=== PATIENT | male | born 1975 | race Caucasian/White ===

== ENCOUNTER 2020-07-23 06:24 | Emergency (ER) | payer OTHER, SELFPAY ==
--- NOTE | ~2020-07-23 | CT_ITS ---
EXAMINATION: CT abdomen pelvis wo con EXAM DATE: 07/23/2020 08:46 INDICATION: right flank pain TECHNIQUE: Spiral CT of the abdomen and pelvis was performed without contrast. Axial, coronal and sag ittal images were reviewed. The dose-length product (DLP) for this examination was 1573.57 mGy-cm. The exposure was tailored according to patient size (auto mA exposure control), and iterative reconst ruction (ASIR) was used as additional dose reduction technique. There is no prior study for comparis on. FINDINGS: A few punctate bilateral calyceal stones. No ureteral stones or hydronephrosis. The prost ate is unremarkable. There is a 5 mm fat density region along the left aspect of the bladder wall, a benign finding such as lipoma. The liver, spleen, adrenal glands and pancreas are unremarkable. Ga llbladder is unremarkable. No biliary obstruction. There is no retroperitoneal or pelvic lymphadeno romana. The appendix is normal. The stomach and small bowel are unremarkable. There is expected amount of c olonic stool. No free intraperitoneal gas. The heart is normal in size. There are no pericardial or pleural effusions. The lung bases are unremarkable. Mild lumbar levoscoliosis. IMPRESSION: 1. Punctate bilateral nephrolithiasis. 2. No acute findings. Reviewed, dictated and finalized at location A. WINDING MACHINE TENDER
--- NOTE | ~2020-07-23 | XR_ITS ---
EXAMINATION: XR abdomen/kub 1V EXAM DATE: 07/23/2020 08:04 INDICATION: right flank pain Since , Hx Stones On Rt Side . TECHNIQUE: Frontal projection(s) of the abdomen for interpretation. CT scan has been ordered for totrista y but it is not available for correlation at this time. FINDINGS: There are 2 calcifications in the right side of the pelvis which are suspected most likely phleboliths. No calcifications overlying the renal contours. Nonobstructive bowel gas pattern. Mild bony degenerative changes. IMPRESSION: Unremarkable XR abdomen/kub 1V exam. Reviewed, dictated and finalized at location A. AND GAMES HAND FINISHER
[2020-07-23 06:29] VITALS: BP 144/99; PULSE 104; RESP 16; TEMP 36.8; O2SAT 100
[2020-07-23 07:28] LABS: Basophils Absolute Auto 0.1 K/mm3 (0.0-0.1); Basophils Percent Auto 1.4 % (0.2-1.2); Eosinophils Absolute Auto 0.2 K/mm3 (0-0.3); Eosinophils Percent Auto 3.3 % (0-4.4); Hematocrit 50.3 % (42.0-52.0); Hemoglobin 17.4 g/dL (14.0-18.0); Immature Granulocyte Absolute 0.02 K/mm3 (0.00-0.031); Immature Granulocyte Percent A 0.3 % (0-0.5); Lymphocytes Absolute Auto 2.03 K/mm3 (0.9-3.2); Lymphocytes Percent Auto 32.3 % (18.3-44.2); Mean Corpuscular HGB Conc 34.6 g/dl (32-36); Mean Corpuscular Hemoglobin 29.1 pg (26-34); Mean Corpuscular Volume 84.1 fl (80-100); Mean Platelet Volume 9.6 fl (7.4-10.4); Monocytes Absolute Auto 0.5 K/mm3 (0.1-0.6); Monocytes Percent Auto 8.1 % (2.6-8.5); Neutrophils Absolute Auto 3.4 K/mm3 (1.3-6.7); Neutrophils Percent Auto 54.6 % (45.5-73.1); Platelet Count Result 301 k/mm3 (150-375); Red Blood Count 5.98 M/mm3 (4.6-6.20); White Blood Count 6.3 K/mm3 (4.5-10.0)
[2020-07-23 07:38] LABS: Alanine Aminotransferase 79 U/L (4-50); Albumin Level 4.1 g/dL (3.5-5.1); Alkaline Phosphatase 102 U/L (38-126); Anion Gap 10 mmol/L (8-16); Aspartate Amino Transferase 50 U/L (17-59); Bilirubin,Total 0.6 mg/dL (0.2-1.3); Blood Urea Nitrogen 11 mg/dL (9-20); Calcium 9.3 mg/dL (8.4-10.2); Carbon Dioxide 28 mmol/L (22-30); Chloride 104 mmol/L (98-107); Estimated Glomerular Filt Rate > 60; Glucose 98 mg/dL (75-110); Lipase 89 U/L (23-300); Potassium 4.3 mmol/L (3.4-5.0); Sodium 142 mmol/L (137-145)
[2020-07-23 07:41] LABS: Add Urine Microscopic? NO; Appearance Urine Clear (Clear); Bilirubin Urine Negative (Negative); Blood Urine Negative (Negative); Color Urine Yellow (Yellow); Glucose Urine UA Negative (Negative); Ketones Urine Negative (Negative); Leukocyte Esterase Ur Negative LEU/UL (Negative); Mucus Urine Few /lpf; Nitrate Urine Negative (Negative); Protein Urine Negative (Negative); RBC Urine 0-2 /hpf (0-2); Specific Grav Ur 1.024 (1.001-1.035); Urobilinogen Urine Negative mg/dL (<2.0); WBC Urine 0-3 /hpf
--- NOTE | 2020-07-23 07:53 | ED.NAVMDI ---
HPI - Nausea/Vomiting/Diarrhea General Chief complaint: Nausea/Vomiting/Diarrhea Stated complaint: abd pain, nausea, flank pain, diarrhea Time Seen by Provider: 07/23/20 06:29 Source: patient Mode of arrival: ambulatory Limitations: no limitations History of Present Illness HPI Narrative: This patient is a 45 year old male who presents for evaluation of abdominal pain with nausea and diarrhea. He states starting 1 week ago he developed diarrhea. He has continued to have multiple episodes of nonbloody loose stools daily. He reports a temperature 99.7F with nausea and vomiting on Saturday. His temperature has been normal since. He is concerned because he is now experiencing epigastric abdominal pain and right flank pain and right lower abdominal pain. He states this pain feels similar to previous episode of a kidney stone years ago. He has not taken anything for pain. Pain is rated 5/10. Related Data Allergies Allergy/AdvReac Type Severity Reaction Status Date / Time No Known Allergies Allergy Verified 07/23/20 07:27 Review of Systems Review of Systems: All systems reviewed & are unremarkable except as noted in HPI and below Constitutional: Constitutional: Denies chills and Reports fever(s) Cardiovascular: Cardiovascular: Denies chest pain Respiratory: Respiratory: Denies cough and Denies dyspnea Gastrointestinal: Gastrointestinal: Reports abdominal pain, Reports diarrhea, Reports nausea and Reports vomiting Genitourinary: Genitourinary: Denies hematuria, Denies oliguria and Denies urinary frequency Musculoskeletal: Musculoskeletal: Reports back pain [facility] Past Medical History Medical History (Updated 07/23/20 @ 09:52 by Elizabeth Johnson MD) Bladder mass Kidney stone Social History Social History (Updated 07/23/20 @ 07:57 by Elizabeth Johnson MD) Tobacco type: e-cigarettes/vaping Alcohol use details: rarely Substance use: never Exam Const: General: no acute distress and alert Orientation/consciousness: patient oriented x3 HENMT: Head: atraumatic Face and sinus: face symmetric Eyes: EOM: EOMs intact bilaterally Chest: Chest palpation & inspection: normal inspection of the chest, abnormal inspection of the chest, tenderness and Pacemaker present Resp: Effort & Inspection: normal respiratory effort, no retractions and no use of accessory muscles Auscultation: clear to auscultation bilaterally Cardio: Rate: regular rate Rhythm: regular rhythm Heart sounds: no murmurs GI: GI Palp: Yes Soft to palpation, Yes Tenderness to palpation present (GI) (RLQ, RUQ), No Guarding due to palpation present (GI) and No Rigid due to palpation Auscultation: normal bowel sounds : General: Yes CVA tenderness on the right Course Reevaluation(s) Reevaluation #1: I discussed with patient labs are unremarkable and CT shows punctate kidney stones. HE denies any additional questions or complaints. Date: 07/23/20 Time: 09:51 Vital Signs Vital signs: Vital Signs Temperature 98.2 F 07/23/20 06:29 Pulse Rate 104 H 07/23/20 06:29 Respiratory Rate 16 07/23/20 06:29 Blood Pressure 144/99 H 07/23/20 06:29 Pulse Oximetry 100 07/23/20 06:29 Temperature 98.2 F 07/23/20 06:29 Pulse Rate 77 07/23/20 09:21 Respiratory Rate 17 07/23/20 09:21 Blood Pressure 139/99 H 07/23/20 09:21 Pulse Oximetry 99 07/23/20 09:21 MDM - Nausea/Vomiting/Diarrhea Lab Data Attestation: I reviewed the patient's lab results. Result diagrams: 07/23/20 07:21 07/23/20 07:21 Labs: Lab Results 07/23/20 07/23/20 07/23/20 Range/Units 07:21 07:21 07:29 WBC 6.3 (4.5-10.0) K/mm3 RBC 5.98 (4.6-6.20) M/mm3 Hgb 17.4 (14.0-18.0) g/dL Hct 50.3 (42.0-52.0) % MCV 84.1 (80-100) fl MCH 29.1 (26-34) pg MCHC 34.6 (32-36) g/dl RDW 13.0 (11.5-14.5) % Plt Count 301 (150-375) k/mm3 MPV 9.6 (7.4-10.4) fl Immature Gran % (Auto) 0
[2020-07-23] MEDS: PANTOPRAZOLE SODIUM IV 40 MG VIAL IV PUSH (08:18)
[2020-07-23] MEDS: SODIUM CHLORIDE 0.9% IV 1,000 ML 999 ML IV CONT (08:18)
[2020-07-23] MEDS: ONDANSETRON INJ 4 MG/2 ML VIAL IV PUSH (08:18)
[2020-07-23 08:21] VITALS: BP 140/97; PULSE 83; RESP 20; O2SAT 98
[2020-07-23 09:21] VITALS: BP 139/99; PULSE 77; RESP 17; O2SAT 99
== END 2020-07-23 10:01 | disposition home or self-care (01) ==
PROVIDERS: Emergency Medicine; Emergency Provider General Practice
DX: R19.7 Diarrhea, unspecified (principal); E86.0 Dehydration; R10.9 Unspecified abdominal pain; F17.290 Nicotine dependence, other tobacco product, uncomplicated; Z87.442 Personal history of urinary calculi; N20.0 Calculus of kidney
CPT/HCPCS: 36415; 74018; 74176; 80053; 81003; 83690; 85025; 96361; 96365; 96375; 99284; C9113; J0131; J2405; J7030

== ENCOUNTER 2020-09-15 09:15 | Outpatient (CLI) | payer OTHER, SELFPAY ==
--- NOTE | ~2020-09-15 | US_ITS ---
EXAMINATION: US right upper quadrant EXAM DATE: 09/15/2020 09:55 INDICATION: elevated liver enzymes . TECHNIQUE: Multiple grayscale and Doppler images of the abdomen right upper quadrant were obtained (b y a technologist who performed the scan) and subsequently reviewed. There is no prior study for lisa ahmadi. FINDINGS: The pancreatic head and body are normal in appearance. The pancreatic tail is not visualized. Mildl y echogenic liver parenchyma, hepatic steatosis. There are no focal liver lesions identified. Ther e is no evidence of intrahepatic biliary duct dilation. Portal venous flow was seen in the hepatoped al, normal direction and has normal Doppler waveform. No right-sided hydronephrosis. Common bile duct measures 3 mm, which is normal. The gallbladder wall is normal in thickness, with ex pected amount of distention. No sonographic evidence of pericholecystic fluid. There is no cholelit hiases. Technologist performing exam reports patient did not demonstrate sonographic Hobson's sign. Please note that this sign is less reliable in patients who have received pain medication. IMPRESSION: Hepatic steatosis. Reviewed, dictated and finalized at location B. CARE TRANSITION IMPRESSION: Hepatic steatosis.
== END 2020-09-15 09:16 | disposition home or self-care (01) ==
PROVIDERS: PCP Emergency Medicine; Visit Provider Emergency Medicine
DX: R74.8 Abnormal levels of other serum enzymes (principal); K76.0 Fatty (change of) liver, not elsewhere classified
CPT/HCPCS: 76705

== ENCOUNTER 2022-08-26 10:27 | Emergency (ER) | payer BC, MEDICAID, SELFPAY ==
--- NOTE | ~2022-08-26 | CT_ITS ---
EXAMINATION: CT abdomen pelvis wo con DATE: 08/26/2022 13:11 INDICATION: Left flank pain radiating to the left lower quadrant TECHNIQUE: Computed tomography (CT) of the abdomen and pelvis was performed without intravenous contr ast. Automated exposure control and iterative reconstruction technique were employed. The dose-length product was 1690.35 mGy-cm. COMPARISON: 07/23/2020 FINDINGS: Tiny calcified nodules at the bilateral lung bases consistent with old granulomatous disease. Heart s ize normal. No pericardial or pleural effusion. A few scattered hepatic steatosis. Gallbladder, splee n, pancreas and bilateral adrenal glands are normal. Bilateral nephrolithiasis with 2 stones in the m id to lower right kidney and 2 stones in the mid to lower left kidney, all measuring <2 mm. There is a slightly larger 2 mm at least partially obstructing stone in the mid left ureter at the level of th e transverse processes of L4 which results in mild left hydronephrosis and mild perinephric stranding . Bladder is normal. No significant change in a 8 mm ovoid macroscopic fat attenuation nodule along t he mucosal side of the wall at the left base of the bladder testing a small lipoma. Bowels including the appendix are normal. Tiny fat-containing umbilical hernia. No free intraperitoneal gas or fluid. No pathologically enlarged abdominal or pelvic lymphadenopathy. Mild S-shaped curvature of the lumbar and lower thoracic spine with mild spondylosis. 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 IMPRESSION: 1. Bilateral nephrolithiasis with at least partially obstructing 2 mm mid left ureteral stone with mi ld left hydronephrosis and perinephric stranding. Correlate with urinalysis to exclude associated uri nary tract infection. 2. Diffuse hepatic steatosis. Reviewed, dictated and finalized at location A. IRER PUMP IMPRESSION: 1. Bilateral nephrolithiasis with at least partially obstructing 2 mm mid left ureteral stone with mild left hydronephrosis and perinephric stranding. Correla te with urinalysis to exclude associated urinary tract infection. 2. Diffuse hepatic steatosis.
[2022-08-26 11:01] VITALS: BP 153/100; PULSE 100; RESP 16; TEMP 36.7; O2SAT 99
[2022-08-26 12:04] LABS: Add Urine Microscopic? YES; Appearance Urine Clear (Clear); Bilirubin Urine Negative (Negative); Blood Urine 2+ (Negative); Color Urine Light Yellow (Yellow); Glucose Urine UA Negative (Negative); Ketones Urine Negative (Negative); Leukocyte Esterase Ur Negative LEU/UL (Negative); Nitrate Urine Negative (Negative); Protein Urine Negative (Negative); Specific Grav Ur 1.025 (1.001-1.035); Urobilinogen Urine 0.2 mg/dL (<2.0); pH Urine 5.5 (5.0-9.0)
[2022-08-26 12:04] LABS: Basophils Absolute Auto 0.1 K/mm3 (0.0-0.1); Basophils Percent Auto 0.9 % (0.2-1.2); Eosinophils Absolute Auto 0.2 K/mm3 (0-0.3); Eosinophils Percent Auto 1.8 % (0-4.4); Hematocrit 48.6 % (42.0-52.0); Hemoglobin 16.3 g/dL (14.0-18.0); Immature Granulocyte Absolute 0.04 K/mm3 (0.00-0.031); Immature Granulocyte Percent A 0.5 % (0-0.5); Lymphocytes Absolute Auto 1.67 K/mm3 (0.9-3.2); Lymphocytes Percent Auto 19.3 % (18.3-44.2); Mean Corpuscular HGB Conc 33.5 g/dl (32-36); Mean Corpuscular Hemoglobin 29.2 pg (26-34); Mean Corpuscular Volume 87.1 fl (80-100); Mean Platelet Volume 9.7 fl (7.4-10.4); Monocytes Absolute Auto 0.7 K/mm3 (0.1-0.6); Monocytes Percent Auto 7.6 % (2.6-8.5); Neutrophils Absolute Auto 6.1 K/mm3 (1.3-6.7); Neutrophils Percent Auto 69.9 % (45.5-73.1); Platelet Count Result 308 k/mm3 (150-375); Red Blood Count 5.58 M/mm3 (4.6-6.20); Red Cell Distribution Width 13.3 % (11.5-14.5); White Blood Count 8.7 K/mm3 (4.5-10.0)
[2022-08-26 12:11] LABS: Bacteria Urine Trace /hpf; Mucus Urine Rare /lpf; RBC Urine 21-50 /hpf (0-2); Squamous Epithelial Cell Urine Rare /hpf (Few); WBC Urine 0-3 /hpf
[2022-08-26 12:20] LABS: Alanine Aminotransferase 89 U/L (6-50); Albumin Level 4.2 g/dL (3.5-5.1); Alkaline Phosphatase 122 U/L (38-126); Anion Gap 7 mmol/L (8-16); Aspartate Amino Transferase 63 U/L (17-59); Bilirubin,Total 0.8 mg/dL (0.2-1.3); Blood Urea Nitrogen 14 mg/dL (9-20); Calcium 8.8 mg/dL (8.4-10.2); Carbon Dioxide 25 mmol/L (22-30); Chloride 105 mmol/L (98-107); Estimated CRCL calculation 87 ml/min; Estimated Glomerular Filt Rate > 60; Glucose 161 mg/dL (65-110); Potassium 4.2 mmol/L (3.4-5.0); Sodium 137 mmol/L (137-145)
--- NOTE | 2022-08-26 12:27 | ED.GENADULT ---
HPI - General Adult General Chief complaint: Urogenital-Male Stated complaint: left flank pain Time Seen by Provider: 08/26/22 11:57 History of Present Illness HPI narrative: Patient is a 47-year-old male presenting with left flank pain for 2 days. Patient states that starting Saturday night he developed left flank pain that radiates into his left lower quadrant. States that he has had multiple episodes of hematuria since that time. States that he has been intermittently nauseated but has not been vomiting. States that he had a kidney stone back in 2009 and this feels similarly. He denies fevers or chills, chest pain, shortness of breath, cough, dysuria. He does report several episodes of diarrhea. Related Data Allergies Allergy/AdvReac Type Severity Reaction Status Date / Time No Known Allergies Allergy Verified 08/26/22 11:41 Review of Systems Review of Systems: All systems reviewed & are unremarkable except as noted in HPI and below PMFSH Past Medical History Medical History Bladder mass Kidney stone Social History Social History Tobacco type: e-cigarettes/vaping Alcohol use details: rarely Substance use: never Exam Narrative: GENERAL: Well-appearing, well-nourished, and in no acute distress. HEAD: Normocephalic, atraumatic. EYES: PERRLA and EOMI. ENT: Nares clear, no rhinorrhea or epistaxis. Mucous membranes moist. NECK: Supple. CHEST: Clear to auscultation. No respiratory distress. HEART: Regular rate and rhythm. No murmur heard. Normal peripheral pulses. ABDOMEN: Soft, tender in left lower quadrant with associated CVA tenderness, no guarding or rebound, nondistended, normal active bowel sounds. EXTREMITIES: Normal range of motion. No edema. SKIN: Warm, dry, no rash. NEURO: No focal deficits. Alert and oriented x3. PSYCH: Normal mood and affect. Course Vital Signs Vital signs: Vital Signs Temperature 98.1 F 08/26/22 11:01 Pulse Rate 100 08/26/22 11:01 Respiratory Rate 16 08/26/22 11:01 Blood Pressure 153/100 H 08/26/22 11:01 Pulse Oximetry 99 08/26/22 11:01 Oxygen Delivery Room Air 08/26/22 11:01 Temperature 98.1 F 08/26/22 11:01 Pulse Rate 86 08/26/22 15:16 Respiratory Rate 16 08/26/22 15:16 Blood Pressure 142/86 H 08/26/22 15:16 Pulse Oximetry 98 08/26/22 15:16 Oxygen Delivery Room Air 08/26/22 11:01 Medical Decision Making MDM Narrative Medical decision making narrative: Patient is a 47-year-old male presenting with left flank pain and hematuria. Patient is hypertensive, though his vitals are within normal limits. Blood work is unremarkable. Renal function is normal. No leukocytosis. UA with RBCs but no evidence of infection. CT abdomen pelvis reveals bilateral nephrolithiasis with 2 mm ureteral stone in the mid left ureter with partial obstruction. There is mild hydro and perinephric stranding. Again no evidence of infection on UA. Patient's pain and nausea is well controlled. I spoke with Dr. Cornelius who recommends Flomax, ibuprofen, [facility] for severe breakthrough pain. Recommends the patient call his clinic this week to schedule follow-up. Patient feels comfortable with this plan. Appropriate return precautions given. Discharged in stable condition. Vital Signs Vital Signs: Vital Signs Temperature 98.1 F 08/26/22 11:01 Pulse Rate 100 08/26/22 11:01 Respiratory Rate 16 08/26/22 11:01 Blood Pressure 153/100 H 08/26/22 11:01 Pulse Oximetry 99 08/26/22 11:01 Oxygen Delivery Room Air 08/26/22 11:01 Temperature 98.1 F 08/26/22 11:01 Pulse Rate 86 08/26/22 15:16 Respiratory Rate 16 08/26/22 15:16 Blood Pressure 142/86 H 08/26/22 15:16 Pulse Oximetry 98 08/26/22 15:16 Oxygen Delivery Room Air 08/26/22 11:01 Lab Data 08/26/22 11:50 08/26/22 11:50 Labs:
[2022-08-26] MEDS: SODIUM CHLORIDE 0.9% IV 1,000 ML 999 ML IV CONT (12:36)
[2022-08-26] MEDS: KETOROLAC 15 MG/ML VIAL (*BKC) IV PUSH (15:10)
[2022-08-26 15:16] VITALS: BP 142/86; PULSE 86; RESP 16; O2SAT 98
== END 2022-08-26 15:20 | disposition home or self-care (01) ==
PROVIDERS: Emergency Provider Emergency Medicine; PCP Emergency Medicine
DX: N13.2 Hydronephrosis with renal and ureteral calculous obstruction (principal)
CPT/HCPCS: 36415; 74176; 80053; 81001; 85025; 96365; 96375; 99284; J0131; J1885; J7030

== ENCOUNTER 2023-05-01 18:33 | Emergency (ER) | payer BC, MEDICAID, SELFPAY ==
[2023-05-01] VITALS (8 sets, daily range): BP systolic 125–151; BP diastolic 74–98; PULSE 97–123; RESP 14–22; TEMP 36.6; O2SAT 96–100
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
[2023-05-01] MEDS: SILVER SULFADIAZINE 1% CR 50 GM JAR (*BKC) 1 APPLIC TOPICAL (18:58)
[2023-05-01] MEDS: HYDROmorphone HCL INJ (*CRX) 1 MG/ML SYR IV PUSH (18:58)
[2023-05-01] MEDS: ONDANSETRON INJ 4 MG/2 ML VIAL IV PUSH (18:58)
[2023-05-01] MEDS: TETANUS,DIPHTHERIA,AC PERTUSSIS ADULT (0.5 ML) BOOSTRIX IM (18:58)
[2023-05-01] MEDS: SODIUM CHLORIDE 0.9% IV 1,000 ML 999 ML IV CONT (18:59)
== END 2023-05-01 20:46 | disposition home or self-care (01) ==
PROVIDERS: Emergency Provider Physician Assistant; PCP Emergency Medicine
DX: T20.25XA Burn of second degree of scalp [any part], initial encounter (principal); T22.111A Burn of first degree of right forearm, initial encounter; T20.10XA Burn of first degree of head, face, and neck, unspecified site, initial encounter; T24.101A Burn of first degree of unspecified site of right lower limb, except ankle and foot, initial encounter; T31.0 Burns involving less than 10% of body surface; F17.290 Nicotine dependence, other tobacco product, uncomplicated; Z23 Encounter for immunization; X03.0XXA Exposure to flames in controlled fire, not in building or structure, initial encounter
CPT/HCPCS: 90471; 90715; 96361; 96374; 96375; 99284; A9270; J1170; J2405; J7030

== ENCOUNTER 2025-08-11 15:00 | Outpatient (CLI) | payer OTHER, SELFPAY ==
[2025-08-11 15:44] LABS: Hematocrit 50.6 % (42.0-52.0); Hemoglobin 16.7 g/dL (14.0-18.0); Mean Corpuscular HGB Conc 33.0 g/dl (32-36); Mean Corpuscular Hemoglobin 28.4 pg (26-34); Mean Corpuscular Volume 86.2 fl (80-100); Platelet Count Result 279 k/mm3 (150-375); Red Blood Count 5.87 M/mm3 (4.6-6.20); White Blood Count 5.8 K/mm3 (4.5-10.0)
[2025-08-11 16:09] LABS: Alanine Aminotransferase 80 U/L (6-50); Albumin Level 4.6 g/dL (3.5-5.1); Alkaline Phosphatase 110 U/L (38-126); Anion Gap 10 mmol/L (4-12); Aspartate Amino Transferase 63 U/L (17-59); Bilirubin,Total 0.8 mg/dL (0.2-1.3); Blood Urea Nitrogen 10 mg/dL (9-20); Calcium 9.5 mg/dL (8.4-10.2); Carbon Dioxide 24 mmol/L (22-30); Chloride 104 mmol/L (98-107); Cholesterol 218 mg/dL (0-200); Estimated Glomerular Filt Rate > 60; Glucose 93 mg/dL (65-110); HDL Direct 38 mg/dL; Potassium 4.2 mmol/L (3.4-5.0); Sodium 138 mmol/L (137-145); Total Protein 8.8 g/dL (6.3-8.2); Triglycerides 222 mg/dL (<150)
[2025-08-11 16:40] LABS: Prostate Specific Antigen 0.7 ng/mL (< OR = 4.0)
[2025-08-11 16:52] LABS: Thyroid Stimulating Hormone Reflex 2.840 uIU/mL (0.465-4.68)
[2025-08-11 17:20] LABS: Hemoglobin A1C 6.8 % (<5.7)
--- OUTSIDE RECORDS SUMMARY | 2025-08-11 19:54 | XMS_ITS | Clinical Summary ---
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 Gender Identity Not on file Sexual Orientation Not on file Plan of Treatment Health Maintenance Due Date Last Done Comments Hepatitis C Virus (HCV) Screening 1977 TdaP Immunization 1977 Hepatitis B Immunization (1 of 3 - 19+ 3-dose series) 1996 Cologuard 2022 Colonoscopy 2022 Colorectal Cancer Screening 2022 Immunochemical Fecal Occult Blood 2022 Influenza Immunization (#1) 2025 SARS-COV-2 Immunization ( season) 2025 04/30/2021, 04/04/2021 Respiratory Syncytial Virus (RSV) Immunization (Adult) (1 - 1-dose 75+ series) 2052 DTaP/Tdap/Td Immunization Discontinued 1987, 04/03/1983, 12/16/1979, Additional history exists Human Papillomavirus (HPV) Immunization (No Doses Required) Completed Meningococcal Immunization (ACWY) Aged Out No longer eligible based on patient's age to complete this topic Pneumococcal Immunization Combined Aged Out No longer eligible based on patient's age to complete this topic Rotavirus Immunization Aged Out No lo nger eligible based on patient's age to complete this topic Insurance MEDICAID AETNA BETTER HEALTH MEDICAID AETNA BETTER [facility] Care Teams Rail Car Driver Relationship Specialty Start Date End Date Yaron Azar MD [address] [place] [id number] PCP - General Family Medicine 07/27/20 Baljeet Emery DO [address] [place] [phone] Consulting Physician Oncology 07/27/20
--- OUTSIDE RECORDS SUMMARY | 2025-08-11 19:54 | XMS_ITS | Clinical Summary ---
Author Organization [facility] Address [address] [place] [address] Phone Care Team Providers Care Product Promoter Sales Person Name Role Phone Unavailable Primary Care Provider Unavailabl e Social History Tobacco Use Types Packs/Day Years Used Date Smoking Tobacco: Never Assessed Sex and Gender Information Value Date Recorded Sex Assigned at Not on file Legal Sex Male 1:01 PM CDT Gender Identity Not on file Sexual Orientation Not on file Plan of Treatment Health Maintenance Due Date Last Done Comments DTAP/TDAP/TD VACCINES (1 - Tdap) 1996 HEPATITIS B VACCINES (1 of 3 - 19+ 3-dose series) 02/1996 COLORECTAL SCREENING 2022 Colorectal Cancer Screening 2022 FIT-DNA Q 3 years 2022 FIT/FOBT Q 1 year 2022 Flex Sig/CT Colonography Q 5 years 2022 INFLUENZA VACCINE (#1) 2025
== END 2025-08-11 15:01 | disposition home or self-care (01) ==
LOC: ANHLAB 15:03
PROVIDERS: PCP Nurse Practitioner Family; Visit Provider Nurse Practitioner Family
DX: Z00.00 Encounter for general adult medical examination without abnormal findings (principal); Z76.89 Persons encountering health services in other specified circumstances; Z13.29 Encounter for screening for other suspected endocrine disorder; Z13.1 Encounter for screening for diabetes mellitus; R35.0 Frequency of micturition; R35.1 Nocturia; K58.0 Irritable bowel syndrome with diarrhea; E66.01 Morbid (severe) obesity due to excess calories; Z68.42 Body mass index [BMI] 45.0-49.9, adult; Z85.51 Personal history of malignant neoplasm of bladder
CPT/HCPCS: 36415; 80053; 80061; 83036; 84153; 84443; 85027

== ENCOUNTER 2025-08-14 07:34 | Outpatient (CLI) | payer OTHER, SELFPAY ==
--- OUTSIDE RECORDS SUMMARY | 2025-08-14 07:38 | XMS_ITS | Clinical Summary ---
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
--- OUTSIDE RECORDS SUMMARY | 2025-08-14 07:38 | XMS_ITS | Encounter Summary ---
Author Organization 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
--- OUTSIDE RECORDS SUMMARY | 2025-08-14 07:38 | XMS_ITS | Clinical Summary ---
Author Organization [facility] Address [address] [place] [address] Phone Care Team Providers Care Waterproofer Helper Name Role Phone Unavailable Primary Care Provider [...]
--- OUTSIDE RECORDS SUMMARY | 2025-08-14 07:38 | XMS_ITS | Clinical Summary ---
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 Gender Identity Not on file Sexual Orientation Not on file Plan of Treatment Health Maintenance Due Date Last Done Comments Colorectal Cancer Screening Colonoscopy (10 Years) 1977 Annual Physical 1980 Hepatitis C 1995 DTaP, Tdap and Td Vaccines ( 1 - Tdap) 1996 Hepatitis B Vaccines (1 of 3 - 19+ 3-dose series) 1996 COVID-19 Vaccine (2024-2 6 season) 2025 Influenza Adult (#1) 2025 Hepatitis A Vaccines Aged Out No long er eligible based on patient's age to complete this topic Meningococcal B Vaccine Aged Out No l onger eligible based on patient's age to complete this topic Meningococcal Vaccine Aged Out No hodan ingrid eligible based on patient's age to complete this topic Pneumococcal Vaccine: Pediat rics (0 to 5 Years) and At-Risk Patients (6 to 49 Years) Aged Out No longer eligible b ased on patient's age to complete this topic RSV Immunizations Under 20 Months Aged Out No longer eligible based on patient's age to complete this topic
[2025-08-14 08:26] LABS: Hemoglobin A1C 6.9 % (<5.7)
[2025-08-14 08:37] LABS: Add Urine Microscopic? NO; Appearance Urine Clear (Clear); Glucose Urine UA Negative (Negative); Leukocyte Esterase Ur Negative LEU/UL (Negative); Nitrate Urine Negative (Negative); Specific Grav Ur 1.020 (1.001-1.035)
== END 2025-08-14 07:35 | disposition home or self-care (01) ==
PROVIDERS: PCP Nurse Practitioner Family; Visit Provider Nurse Practitioner Family
DX: R35.1 Nocturia (principal); R35.0 Frequency of micturition; R73.09 Other abnormal glucose
CPT/HCPCS: 36415; 81003; 83036; 87086